=== PATIENT | female | born 1975 | race Native Hawaiian/Other Pacific Islander ===

== ENCOUNTER 2017-08-13 21:03 | Inpatient (IN) | payer BC ==
[~2017-08-13] VITALS: Ht 167.6 cm; Wt 98.4 kg
[2017-08-13 21:13] VITALS: BP 153/74; TEMP 98.8
[2017-08-13 23:35] LABS: PLATELET COUNT 372 K/uL (152-353)
[2017-08-13 23:41] LABS: POTASSIUM 3.5 mmol/L (3.6-5.2)
[2017-08-14] VITALS (7 sets, daily range): BP systolic 104–155; BP diastolic 55–78; TEMP 97.7–99.1; Ht 167.6 cm; Wt 98.4 kg
--- NOTE | 2017-08-14 01:45 | NUR ---
PT ADMITTED TO FLOOR VIA WHEELCHAIR FROM ER. PT PRESENTS WITH A SWOLLEN RIGHT HAND. PT STATES THAT THE ONSET WAS THURSDAY AND IT STARTED SWELLING MORE DURING THE DAY ON THURSDAY. NAD. WILL CONTINUE TO MONITOR.
--- NOTE | 2017-08-14 02:40 | NUR ---
PT REQUESTED PAIN MEDICATION. PT ENCOURAGED TO TRY A WARM COMPRESS. COMPRESS WAS APPLIED. PT TOLERATED WELL. WILL CONTINUE TO MONITOR.
[2017-08-15] VITALS (7 sets, daily range): BP systolic 111–148; BP diastolic 63–86; TEMP 97.6–99.6
[2017-08-15 06:06] LABS: PLATELET COUNT 375 K/uL (152-353)
[2017-08-15 06:19] LABS: POTASSIUM 3.4 mmol/L (3.6-5.2)
--- NOTE | 2017-08-15 06:30 | NUR ---
08/15/17 0566 WARN COMPRESS APPLIED TO RIGHT HAND TOLERATED WELL.CC
--- NOTE | 2017-08-15 22:13 | NUR ---
08/15/172099 WARM COMPRESS APPLIED TO RIGHT HAND TOLERATED WELL.CC
[2017-08-16 04:00] VITALS: BP 106/72; TEMP 98.9
[2017-08-16 05:32] LABS: PLATELET COUNT 423 K/uL (152-353)
[2017-08-16 07:53] VITALS: BP 124/73; TEMP 98.6
[2017-08-16 12:00] VITALS: BP 123/74; TEMP 98.1
[2017-08-16 16:00] VITALS: BP 124/78; TEMP 98.5
[2017-08-16 20:00] VITALS: BP 144/86; TEMP 98.6
[2017-08-17] VITALS (7 sets, daily range): BP systolic 115–142; BP diastolic 68–90; TEMP 97.9–98.8
[2017-08-17 06:03] LABS: POTASSIUM 3.9 mmol/L (3.6-5.2)
[2017-08-17 06:23] LABS: PLATELET COUNT 491 K/uL (152-353)
[2017-08-17] MEDS ORDERED: MEDROL DOSEPAK4 MG PO (16:16)
[2017-08-17] MEDS ORDERED: KETO10TA34 PO (16:16)
[2017-08-18 04:00] VITALS: BP 146/75; TEMP 98.4
[2017-08-18 06:05] LABS: PLATELET COUNT 496 K/uL (152-353)
[2017-08-18 06:27] LABS: POTASSIUM 4.2 mmol/L (3.6-5.2)
[2017-08-18 08:00] VITALS: BP 133/88; TEMP 98.1
[2017-08-18] MEDS ORDERED: 904272561 PO (08:18)
--- NOTE | 2017-08-18 09:48 | NUR ---
DC INSTRUCTIONS GIVEN TO PT AND PT VERBALIZED UNDERSTANDING. IV DC'D WITH CANNULA INTACT AND SITE CARE PROVIDED. NAD NOTED. PT LEFT AMBULATORY REQUESTED.
== END 2017-08-18 09:30 | disposition home or self-care (01) | DRG 558 ==
LOC: ED 21:03 → MED/SURG 08-14 01:07
PROVIDERS: ADMIT Specialist
DX: M65.841 Other synovitis and tenosynovitis, right hand (principal); E87.1 Hypo-osmolality and hyponatremia; Z72.0 Tobacco use; E87.6 Hypokalemia; D72.828 Other elevated white blood cell count
CPT/HCPCS: 36415; 80048; 80053; 85027; 85651; 87040; 96365; 99284; A9576; J0295; J1885

== ENCOUNTER 2017-09-14 13:40 | Emergency (ER) | payer BC ==
[~2017-09-14] VITALS: Ht 167.6 cm; Wt 95.3 kg
[~2017-09-14 13:40] MED LIST: 904272561 PO; KETO10TA34 PO; MEDROL DOSEPAK4 MG PO
[2017-09-14 13:45] VITALS: TEMP 98.5
[2017-09-14 15:22] LABS: PLATELET COUNT 405 K/uL (152-353)
[2017-09-14 15:39] LABS: POTASSIUM 3.1 mmol/L (3.6-5.2)
[2017-09-14 15:53] VITALS: BP 138/78
== END 2017-09-14 15:56 | disposition home or self-care (01) ==
LOC: ED 13:40
PROVIDERS: Emergency Medicine
DX: L03.116 Cellulitis of left lower limb (principal)
CPT/HCPCS: 36415; 80053; 83605; 85027; 90715; 96372; 99283; J0696